=== PATIENT | female | born 1965 | race Caucasian/White ===

== ENCOUNTER 2016-07-14 12:24 | Emergency (ER) | payer BC ==
[~2016-07-14] VITALS: Ht 162.6 cm; Wt 90.7 kg
[2016-07-14 14:27] VITALS: BP 145/82
[2016-07-14] MEDS ORDERED: PRED20TA PO (14:36)
[2016-07-14] MEDS ORDERED: AMOX1TAB61 PO (14:36)
--- NOTE | 2016-07-14 14:36 | PHYS DOC ---
Past Medical History Past Medical History: Other Additional Past Medical Histor: SEASONAL ALLERGIES Past Surgical History: No Surgical History Alcohol Use: None Drug Use: None Adult General Chief Complaint Chief Complaint: FACE PROBLEM HPI HPI 51-year-old female presents with facial pain and some swelling under her right eye. She has had some pretty severe nasal congestion and feels like she has a sinus infection. She also states that she is had trouble in the past with her right tear duct not draining well. She denies any purulent drainage from the eye. She states pain over her maxillary sinus is pretty intense.] Review of Systems Review of Systems Constitutional: Denies fever or chills [] Eyes: Denies change in visual acuity, redness, or eye pain [] HENT: Per history of present illness [] Respiratory: Denies cough or shortness of breath [] Cardiovascular: No additional information not addressed in HPI [] GI: Denies abdominal pain, nausea, vomiting, bloody stools or diarrhea [] : Denies dysuria or hematuria [] Musculoskeletal: Denies back pain or joint pain [] Integument: Denies rash or skin lesions [] Neurologic: Denies headache, focal weakness or sensory changes [] Endocrine: Denies polyuria or polydipsia [] Allergies Allergies Allergies Coded Allergies Type Severity Reaction Last Updated Verified No Known Drug Allergies 07/14/16 No Physical Exam Physical Exam Constitutional: Well developed, well nourished, no acute distress, non-toxic appearance. [] HENT: Swelling under the right eye no palpable abscess nasal mucosa is swollen and congested. [] Eyes: PERRLA, EOMI, conjunctiva normal, no discharge. [] Neck: Normal range of motion, no tenderness, supple, no stridor. [] Cardiovascular:Heart rate regular rhythm, no murmur [] Lungs & Thorax: Bilateral breath sounds clear to auscultation [] Abdomen: Bowel sounds normal, soft, no tenderness, no masses, no pulsatile masses. [] Skin: Warm, dry, no erythema, no rash. [] Back: No tenderness, no CVA tenderness. [] Extremities: No tenderness, no cyanosis, no clubbing, ROM intact, no edema. [] Neurologic: Alert and oriented X 3, normal motor function, normal sensory function, no focal deficits noted. [] Psychologic: Affect normal, judgement normal, mood normal. [] Current Patient Data Vital Signs Vital Signs Date Time Temp Pulse Resp B/P Pulse Ox O2 Delivery O2 Flow Rate FiO2 07/14/16 14:27 98.4 76 18 97 Room Air 98.4 EKG EKG [] Radiology/Procedures Radiology/Procedures [] Course & Med Decision Making Course & Med Decision Making Pertinent Labs and Imaging studies reviewed. (See chart for details) [] Dragon Disclaimer Dragon Disclaimer This electronic medical record was generated, in whole or in part, using a voice recognition dictation system. Departure Departure Impression: Primary Impression: Sinusitis Disposition: HOME, SELF-CARE Condition: STABLE Referrals: PANFILO RENDON MD (PCP) Patient Instructions: Sinusitis Additional Instructions: Thank you for allowing us to participate in your care today. Followup with your primary care physician in 3 days if your symptoms do not improve. Return to the emergency department you have any new or concerning findings. This should be evaluated by the primary care physician and any necessary consulting services for continued management within a few days after discharge. Return to emergency room if you have any new or concerning symptoms including but not limited to fever, chills, nausea, vomiting, intractable pain, any new rashes, chest pain, shortness of air, uncontrolled bleeding, difficulty breathing, and/or vision loss. You may have been prescribed medication that can change in your level of thinking and ability to operate machinery. These medications include hydrocodone and Ativan. Also, Benadryl has been known to do this as well. Be sure to check with your pharmacist and ask if the medications you've prescribed can affect your level of consciousness. I recommend not operating heavy machinery or driving while on medication such as these. Scripts Prednisone 20 Mg Tablet2 Tab PO DAILY PRN sinusitis #14 TAB Prov:SAM VALLE DO 07/14/16 Amoxicillin/Potassium Clav (Augmentin 875-125 Tablet)1 Each Tablet1 Tab PO BID sinusitis #20 TAB Prov:SAM VALLE DO 07/14/16 Problem Qualifiers Primary Impression: Sinusitis Sinusitis location: maxillary Chronicity: acute Recurrence: not specified as recurrent Qualified Code: J01.00 - Acute maxillary sinusitis, unspecified SAM VALLE DO Jul 14, 2016 14:36
== END 2016-07-14 14:55 | disposition home or self-care (01) ==
LOC: ER 12:24
DX: J32.9 Chronic sinusitis, unspecified (principal)
CPT/HCPCS: 99283

== ENCOUNTER → 2016-08-13 | Outpatient (CLI) | payer BC ==
[2016-07-14 14:27] VITALS: BP 145/82
[~2016-08-13] MED LIST: AMOX1TAB61 PO; PRED20TA PO
--- NOTE | 2016-08-13 09:49 | RAD ---
DATE: 08/13/2016 EXAM: DIGITAL SCREEN BILAT W/CAD HISTORY: Screening COMPARISON: 05/18/2015 This study was interpreted with the benefit of Computerized Aided Detection (CAD). FINDINGS: The breast parenchyma shows scattered fibroglandular densities. Breast parenchyma level B. There has not been a significant change in the appearance of the breasts compared to the previous exam IMPRESSION: Benign findings BI-RADS CATEGORY: 2 BENIGN FINDING(S) RECOMMENDED FOLLOW-UP: 12M 12 MONTH FOLLOW-UP PQRS compliance statement: Patient information was entered into a reminder system with a target due date 08/13/2017 for the next mammogram. Mammography is a sensitive method for finding small breast cancers, but it does not detect them all and is not a substitute for careful clinical examination. A negative mammogram does not negate a clinically suspicious finding and should not result in delay in biopsying a clinically suspicious abnormality. "Our facility is accredited by the [employer] Mammography Program."
== END | disposition home or self-care (01) ==
LOC: MAMMO 09:13
PROVIDERS: ATTEND Family Medicine
DX: Z12.31 Encounter for screening mammogram for malignant neoplasm of breast (principal)
CPT/HCPCS: G0202; 77067

== ENCOUNTER → 2019-03-17 | Outpatient (CLI) | payer BC ==
--- NOTE | 2019-03-19 09:44 | RAD ---
DATE: 03/17/2019. EXAM: DIGITAL SCREEN BILAT W/CAD. HISTORY: Routine mammographic screening. COMPARISON: 08/13/2016. This study was interpreted with the benefit of Computerized Aided Detection (CAD). FINDINGS: Breast Density: SCATTERED The breast parenchyma shows scattered fibroglandular densities. Breast parenchyma level B.. There is a new irregular density superiorly on the left MLO view, likely corresponding with the density laterally on the CC projection. On the right, there is a new small nodule slightly laterally on the CC view. It does not a clear correlate on the MLO view but is likely slightly superior. BI-RADS CATEGORY: 0 INCOMPLETE: NEEDS ADDITIONAL IMAGING EVALUATION AND/OR PRIOR MAMMOGRAMS FOR COMPARISON.. RECOMMENDED FOLLOW-UP: ADD ADDITIONAL IMAGING. 1. Spot compression of the mid to irregular density superolaterally on the left. Sonography if necessary. 2. Spot compression of a new nodule laterally and likely superiorly on the right. Sonography if necessary. PQRS compliance statement: Patient information was entered into a reminder system with a target due date (now) for the next mammogram. Mammography is a sensitive method for finding small breast cancers, but it does not detect them all and is not a substitute for careful clinical examination. A negative mammogram does not negate a clinically suspicious finding and should not result in delay in biopsying a clinically suspicious abnormality. "Our facility is accredited by the [employer] Mammography [employer]."
== END | disposition home or self-care (01) ==
LOC: MAMMO 10:39
PROVIDERS: ATTEND Obstetrics & Gynecology
DX: Z12.31 Encounter for screening mammogram for malignant neoplasm of breast (principal); N63.10 Unspecified lump in the right breast, unspecified quadrant
CPT/HCPCS: 77067

== ENCOUNTER → 2019-03-31 | Outpatient (CLI) | payer BC ==
--- NOTE | 2019-03-31 15:20 | RAD ---
DATE: 03/31/2019. EXAM: DIGITAL DIAGNOSTIC BILATERAL, BREAST BILATERAL. HISTORY: Additional views requested for indeterminate mammographic findings. COMPARISON: 03/17/2019. This study was interpreted with the benefit of Computerized Aided Detection (CAD). FINDINGS: Breast Density: SCATTERED The breast parenchyma shows scattered fibroglandular densities. Breast parenchyma level B.. The density of concern superiorly on the left resolves to its former appearance on spot compression. The parenchymal laterally appears stable. On today's sonography, a few mildly prominent ducts are noted, but there is no suspicious sonographic finding. On the right, the nodule of concern on the CC projection is less well spleen with spot compression. There is no suspicious mammographic finding. On today's sonography, at the 9:00 position 7 7 8 cm from the nipple, small complicated cysts measure 5 x 2 mm and 4 x 2 mm, respectively. These likely correspond with prior mammographic finding. There is no suspicious sonographic finding. BI-RADS CATEGORY: 2 BENIGN FINDING(S). RECOMMENDED FOLLOW-UP: 12M 12 MONTH FOLLOW-UP. PQRS compliance statement: Patient information was entered into a reminder system with a target due date 03/17/2020 for the next mammogram. Mammography is a sensitive method for finding small breast cancers, but it does not detect them all and is not a substitute for careful clinical examination. A negative mammogram does not negate a clinically suspicious finding and should not result in delay in biopsying a clinically suspicious abnormality. "Our facility is accredited by the [employer] Mammography Program."
== END | disposition home or self-care (01) ==
LOC: MAMMO 13:50
PROVIDERS: ATTEND Obstetrics & Gynecology
DX: N60.01 Solitary cyst of right breast (principal); N63.10 Unspecified lump in the right breast, unspecified quadrant
CPT/HCPCS: 76641; 77066

== ENCOUNTER 2020-03-02 16:55 | Emergency (ER) | payer BC ==
[~2020-03-02] VITALS: Ht 160 cm; Wt 104.5 kg
--- NOTE | 2020-03-02 18:25 | PHYS DOC ---
Past Medical History Past Medical History: GERD, High Cholesterol, Hypothyroid, Other Additional Past Medical Histor: SEASONAL ALLERGIES Past Surgical History: Hysterectomy, Other Additional Past Surgical Histo: BILATERAL ROTATOR CUFF Smoking Status: Current Every Day Smoker Alcohol Use: None Drug Use: None General Adult EDM: Chief Complaint: FLANK PAIN HPI: HPI: 54-year-old female past medical history significant for hyperlipidemia, GERD, tobacco dependence and hypothyroidism, presents the ED with complaints of sudden onset right low back pain that started while patient was brushing her teeth when she started to choke. Patient describes the pain as sharp and burning in nature that radiates around to the front of her abdomen in ruq, worse with any sneezing or increased abdominal pressure. No relief with Tylenol. Patient states she had an upper and lower GI [address] Morelos. 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 Denies any fall, trauma, heavy lifting or prior back injury or disc herniation or neuropathy. Last bowel movement was yesterday was brown in color. No history of GI bleed. Denies any daily alcohol use or illicit drug use. Past surgical history of INDU-BSO (h/o uterine fibroids and endometriosis), sections and bilateral rotator cuff surgery. Reports next GI test is for the gallbladder. Review of Systems: Review of Systems: Constitutional: Denies fever or chills. [] Eyes: Denies change in visual acuity. [] HENT: Denies nasal congestion or sore throat. [] Respiratory: Denies cough or shortness of breath. [] Cardiovascular: Denies chest pressure/heaviness/tightness or edema. [] GI: Denies abdominal pain, nausea, vomiting, bloody stools or diarrhea. [] : Denies dysuria. [] Or hematuria or increased urinary frequency or suprapubic discomfort Musculoskeletal: Denies midline back pain or joint pain. [] Integument: Denies rash. [] Or swelling Neurologic: Denies headache, focal weakness or sensory changes. [] No midline neck pain no nuchal rigidity, No saddle anesthesia, no urinary or bowel retention or incontinence Endocrine: Denies polyuria or polydipsia. [] Lymphatic: Denies swollen glands. [] Psychiatric: Denies depression or anxiety. [] Heart Score: Risk Factors: Risk Factors: DM, Current or recent (<one month) smoker, HTN, HLP, family history of CAD, obesity. Risk Scores: Score 0 - 3: 2.5% MACE over next 6 weeks - Discharge Home Score 4 - 6: 20.3% MACE over next 6 weeks - Admit for Clinical Observation Score 7 - 10: 72.7% MACE over next 6 weeks - Early Invasive Strategies Allergies: Allergies: Allergies Coded Allergies Type Severity Reaction Last Updated Verified No Known Drug Allergies 07/14/16 No Physical Exam: PE: Constitutional: Well developed, well nourished, no acute distress, non-toxic appearance. [] afebrile HENT: Normocephalic, atraumatic, Eyes: EOMI, conjunctiva normal, no discharge. [] Neck: Normal range of motion, supple, no stridor. [] Cardiovascular:Heart rate regular rhythm, no murmur [] Lungs & Thorax: Bilateral breath sounds clear to auscultation [] Abdomen: obese abdomen, Bowel sounds normal, soft, no tenderness, no masses, no pulsatile masses. [] Skin: Warm, dry, no erythema, no rash. [] Back: No tenderness, no CVA tenderness. [] Extremities: No tenderness, no cyanosis, no clubbing, ROM intact, no edema. [] Equal radial pulses bilaterally Neurologic: Alert and oriented X 3, normal motor function, normal sensory function, no focal deficits noted. [] Psychologic: Affect normal, judgement normal, mood normal. [] Current Patient Data: Vital Signs: Vital Signs Date Time Temp Pulse Resp B/P (MAP) Pulse Ox O2 Delivery O2 Flow Rate FiO2 03/02/20 17:40 98.2 67 16 159/78 (105) 98.2 EKG: EKG: [] Radiology/Procedures: Radiology/Procedures: IMAGING REPORT Signed PATIENT: OLIVA OCAMPO ACCOUNT: [id number] : 1965 LOCATION: ER AGE: 54 SEX: F EXAM STATUS: REG ER ORD. PHYSICIAN: LIVAN SOLIS DO REASON: right flank pain radiates to front PROCEDURE: CT ABD PELV W/ IV CONTRST ONLY CT abdomen and pelvis with contrast; CT lumbar spine reconstruction History: Right flank pain radiating to the front Technique: After the administration of intravenous contrast, CT imaging was performed of the abdomen and pelvis. Reconstruction CT images of the lumbar spine are also submitted. No oral contrast was given. Multiplanar images are reviewed. Exposure: One or more of the following individualized dose reduction techniques were utilized for this examination: 1. Automated exposure control 2. Adjustment of the mA and/or kV according to patient size 3. Use of iterative reconstruction technique. Comparison: None Findings: There is a calcified nodule of the right lower lobe of the lung. There are a couple of small right pericardiophrenic nodes. There is no significant focal abnormality of the liver, spleen, pancreas, adrenal glands. There is likely hepatic steatosis. There are splenic granulomas. There is small accessory spleen. Both kidneys enhance without hydronephrosis. Gallbladder is present without obvious intraluminal abnormality by CT. Accurate evaluation of bowel is limited without oral contrast. There is no significant inflammatory change adjacent to the bowel. There is no evidence of bowel obstruction, free fluid, or free air. Normal caliber appendix is visualized without adjacent inflammatory-type change. There are some inguinal nodes bilaterally, borderline in size on the right about 1 cm short axis dimension. Impression: 1. There is no significant inflammatory change about the bowel, no CT evidence of acute appendicitis. 2. There is likely hepatic steatosis. 3. There is nonspecific borderline sized right inguinal node. CT lumbar spine FINDINGS: Lumbar vertebral body stature and AP alignment are maintained. There is multilevel lumbar facet degenerative change greater inferiorly of the lumbar spine. There is likely mild narrowing of the far lateral recesses bilaterally at L4-5 due to facet hypertrophic change and buckling of the ligamentum flavum, also very minimal disc osteophyte complex. Disc osteophyte complex contributes to likely [id number] narrowing of the left L5-S1 neural foramen. Facet degenerative change contributes to fairly severe narrowing of the right T8-9 neural foramen, also at least moderate narrowing on the right at T7-8 and T9-10. There is also moderate to severe narrowing of the left T7-8 and T9-T10 neural foramina. There is mild lumbar degenerative disc disease greatest at L5-S1 and L4-5. IMPRESSION: 1.Facet degenerative change contributes to multilevel inferior thoracic neural foramina compromise. 2. There is likely mild narrowing of the far lateral recesses bilaterally at L4-5. 3. There is mild degenerative disc disease greater inferiorly of the lumbar spine. Electronically signed by: Abiel Cash MD (03/02/2020 7:52 PM) [facility] DICTATED and SIGNED BY: ABIEL CASH MD DATE: 03/02/201951 Course & Med Decision Making: Course & Med Decision Making Pertinent Labs and Imaging studies reviewed. (See chart for details) Concern for right sharp and burning flank pain that radiates around to patient's right upper quadrant, onset today, suspect thoracic neuropathy. Labs unremarkable with no anemia, leukocytosis or renal failure, negative troponin and lipase. Urinalysis with no signs of infection, 0 RBC, [address] abdomen pelvis with contrast shows fatty heapatosis, no acute appendicitis or bowel inflammation. Aorta reviewed by myself on CT - normal diameter in 2 dimensions. Also shows DDD and multilevel inferior thoracic neural foramina compromise-which could explain pts' sxs. Patient has no neurologic deficits and is calm, able to tolerate pain with steady gait. Will prescribe gabapentin and felxeril (pt requests flexeril given efficacy in past). will DC home with strict ED return precautions present anesthesia, urinary bowel retention or incontinence, weakness or sensory deficits. Encouraged urgent outpatient follow-up with PMD and Ortho-may benefit from MRI if no improvement with conservative management. Life-threatening processes were considered but are low suspicion at this time, given history and physical exam. Pt was educated on all prescription medications and adverse effects. All patient's questions were answered and pt was stable at time of discharge. Life/limb-threatening differential includes but is not limited to, aortic dissection/aneurysm, cauda equina syndrome, transverse myelitis, spinal cord compression, epidural abscess or hematoma, osteomyelitis, disc herniation, surgical abdomen, stable or unstable fracture, renal colic/urosepsis, muscul oskeletal injury, traumatic injury, intraabdominal or pelvic bleeding, I spoken with the patient and her caregivers. I explained the patient's condition, diagnoses and treatment plan based on the information available to me at this time. I have answered the patient and her caregiver's questions and addressed any concerns. The patient and her caregivers have a good understandin g of patient's diagnosis, condition and treatment plan as can be expected at this point. Vital signs have been stable. Patient's condition is stable and appropriate for discharge from the emergency department. Patient will pursue further outpatient evaluation with primary care physician or other designated or consulting physician as outlined in the discharge instructions. The patient and/or caregivers are agreeable to this plan of care and follow-up instructions have been explained in detail. The patient and/or caregivers have received these instructions in written form and have expressed an understanding of the discharge instructions. The patient and/or caregivers are aware that any significant change of condition or worsening of symptoms should prompt immediate return to this or the closest emergency department or call to 1Ken Robles Disclaimer: Margaret Disclaimer: This electronic medical record was generated, in whole or in part, using a voice recognition dictation system. 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 Disposition: 01 DC HOME SELF CARE/HOMELESS Condition: STABLE Referrals: PANFILO RENDON MD (PCP) in 1- 2 weeks for re-eval Patient Instructions: Degenerative Disk Disease, Pain, Neuropathic Additional Instructions: FOLLOW UP WITH ORTHOPEDICS: Orthopaedic Sports Medicine Orthopaedic Surgery [facility] Address: [address] [place] [address] [address] [place] [address] FOLLOW UP WITH NEUROSURGERY: Neurological Surgery [place] [facility] Address: [address] [place] [address] [address] [place] [address] EMERGENCY DEPARTMENT GENERAL DISCHARGE INSTRUCTIONS Thank you for coming to [facility] Emergency Department (ED) today and trusting us with you care. We trust that you had a positive experience in our Emergency Department. If you wish to speak to the department management, you may call the Director at [phone]. YOUR FOLLOW UP INSTRUCTIONS ARE FOLLOWS: 1. Do you have a private Doctor? If you do not have a private doctor, please ask for a resource list of physicians or clinics that may be able to assist you with foll ow up care. 2. The Emergency Physicain has interpreted your x-rays. The X-Ray specialist will also review them. If there is a change in the findings, you will be notified in 48 hours when at all possible. 3. A lab test or culture has been done, your results will be reviewed and you will be notified if you need a change in treatment. ADDITIONAL INSTRUCTIONS AND INFORMATION: 1. Your care today has been supervised by a physician who is specially trained in emergency care. Many problems require more than one evaluation for a complete diagnosis and treatment. We recommend that you schedule your follow up appointment as re commended to ensure complete treatment of you illness or injury. If you are unable to obtain follow up care and continue to have a problem, or if your condition worsens, we recommend that you return to the ED. 2. We are not able to safely determine your condition over the phone nor are we able to give sound medical advice over the phone. For these safety reasons, if you call for medical advice we will ask you to come to the ED for further evaluation. 3. If you have any questions regarding these discharge instructions please call the ED at [phone]. SAFETY INFORMATION: In the interest of safety, wellness, and injury prevention; we encourage you to wear your sealbelt, if you smoke; quite smoking, and we encourage family to use a protective helmet for bicycling and other sporting events that present an increased risk for head injury. IF YOUR SYMPTOMS WORSEN OR NEW SYMPTOMS DEVELOP, OR YOU HAVE CONCERNS ABOUT YOUR CONDITION; OR IF YOUR CONDITION WORSENS WHILE YOU ARE WAITING FOR YOUR FOLLOW UP APPOINTMENT; EITHER CONTACT YOUR PRIMARY CARE DOCTOR, THE PHYSICIAN WHOSE NAME AND NUMBER YOU WERE GIVEN, OR RETURN TO THE ED IMMEDIATELY. Scripts Gabapentin (GABAPENTIN) 600 Mg Tablet 600 MG PO TID for NEUROGENIC PAIN for 7 Days, #21 TAB Prov: LIVAN SOLIS DO 03/02/20 Cyclobenzaprine Hcl (CYCLOBENZAPRINE HCL) 10 Mg Tablet 1 TAB PO TID, #21 TAB Prov: LIVAN SOLIS DO 03/02/20 LIVAN SOLIS DO Mar 02, 2020 18:25
[2020-03-02 18:26] LABS: BASO % 0 % (0-3); EOS # 0.3 x10^3/uL (0.0-0.7); EOS % 3 % (0-3); HEMATOCRIT 42.3 % (36.0-47.0); HEMOGLOBIN 14.8 g/dL (12.0-15.5); LYMPH # 3.1 x10^3/uL (1.0-4.8); LYMPH % 32 % (24-48); MEAN CORPUSCULAR HEMOGLOBIN 33 pg (25-35); MEAN CORPUSCULAR HGB CONC 35 g/dL (31-37); MEAN CORPUSCULAR VOLUME 93 fL (79-100); MONO # 0.7 x10^3/uL (0.0-1.1); MONO % 8 % (0-9); NEUT # 5.7 x10^3/uL (1.8-7.7); NEUT % 57 % (31-73); PLATELET COUNT 237 x10^3/uL (140-400); RED BLOOD COUNT 4.55 x10^6/uL (3.50-5.40); WHITE BLOOD COUNT 9.8 x10^3/uL (4.0-11.0)
[2020-03-02 18:29] LABS: BILIRUBIN,URINE NEGATIVE (NEG); CLARITY,URINE CLEAR; COLOR,URINE YELLOW; NITRITE,URINE NEGATIVE (NEG); PH,URINE 6.5 (<5.0-8.0); PROTEIN,URINE NEGATIVE (NEG-TRACE); UROBILINOGEN,URINE 0.2 mg/dL (0.2 mg/dL)
[2020-03-02 18:34] LABS: BACTERIA,URINE 0 /HPF (0-FEW); RBC,URINE 0 /HPF (0-2); WBC,URINE 0 /HPF (0-4)
[2020-03-02 18:44] LABS: CALCIUM 8.9 mg/dL (8.5-10.1); GFR 57.4; POTASSIUM 3.9 mmol/L (3.5-5.1)
[2020-03-02 18:46] LABS: MAGNESIUM 2.3 mg/dL (1.8-2.4)
[2020-03-02 18:49] LABS: ALBUMIN 3.7 g/dL (3.4-5.0); ALBUMIN/GLOBULIN RATIO 1.1 (1.0-1.7); TOTAL BILIRUBIN 0.3 mg/dL (0.2-1.0); TOTAL PROTEIN 7.2 g/dL (6.4-8.2)
[2020-03-02] MEDS ORDERED: CONTRAST GIVEN. MC PRN (19:00)
[2020-03-02] MEDS ORDERED: IOHEXOL 300 MG/ML 100ML VIAL. IV ONE (19:00)
[2020-03-02] MEDS ORDERED: MORPHINE SULFATE 4 MG/ML VIAL. IV ONE (19:45)
[2020-03-02] MEDS ORDERED: ONDANSETRON PF 4 MG/2 ML VIAL. IVP ONE (19:45)
--- NOTE | 2020-03-02 19:55 | RAD ---
CT abdomen and pelvis with contrast; CT lumbar spine reconstruction History: Right flank pain radiating to the front Technique: After the administration of intravenous contrast, CT imaging was performed of the abdomen and pelvis. Reconstruction CT images of the lumbar spine are also submitted. No oral contrast was given. Multiplanar images are reviewed. Exposure: One or more of the following individualized dose reduction techniques were utilized for this examination: 1. Automated exposure control 2. Adjustment of the mA and/or kV according to patient size 3. Use of iterative reconstruction technique. Comparison: None Findings: There is a calcified nodule of the right lower lobe of the lung. There are a couple of small right pericardiophrenic nodes. There is no significant focal abnormality of the liver, spleen, pancreas, adrenal glands. There is likely hepatic steatosis. There are splenic granulomas. There is small accessory spleen. Both kidneys enhance without hydronephrosis. Gallbladder is present without obvious intraluminal abnormality by CT. Accurate evaluation of bowel is limited without oral contrast. There is no significant inflammatory change adjacent to the bowel. There is no evidence of bowel obstruction, free fluid, or free air. Normal caliber appendix is visualized without adjacent inflammatory-type change. There are some inguinal nodes bilaterally, borderline in size on the right about 1 cm short axis dimension. Impression: 1. There is no significant inflammatory change about the bowel, no CT evidence of acute appendicitis. 2. There is likely hepatic steatosis. 3. There is nonspecific borderline sized right inguinal node. CT lumbar spine FINDINGS: Lumbar vertebral body stature and AP alignment are maintained. There is multilevel lumbar facet degenerative change greater inferiorly of the lumbar spine. There is likely mild narrowing of the far lateral recesses bilaterally at L4-5 due to facet hypertrophic change and buckling of the ligamentum flavum, also very minimal disc osteophyte complex. Disc osteophyte complex contributes to likely [id number] narrowing of the left L5-S1 neural foramen. Facet degenerative change contributes to fairly severe narrowing of the right T8-9 neural foramen, also at least moderate narrowing on the right at T7-8 and T9-10. There is also moderate to severe narrowing of the left T7-8 and T9-T10 neural foramina. There is mild lumbar degenerative disc disease greatest at L5-S1 and L4-5. IMPRESSION: 1.Facet degenerative change contributes to multilevel inferior thoracic neural foramina compromise. 2. There is likely mild narrowing of the far lateral recesses bilaterally at L4-5. 3. There is mild degenerative disc disease greater inferiorly of the lumbar spine. Electronically signed by: Rehan Hall MD (03/02/2020 7:52 PM) [facility]
[2020-03-02] MEDS ORDERED: GABA600T7 PO (20:53)
[2020-03-02] MEDS ORDERED: CYCL10TA2 PO (20:53)
[2020-03-02 21:20] VITALS: BP 164/74
== END 2020-03-02 21:28 | disposition home or self-care (01) ==
LOC: ER 16:55
DX: R10.13 Epigastric pain (principal); M51.36 Other intervertebral disc degeneration, lumbar region; M54.5 Low back pain; R20.8 Other disturbances of skin sensation; K21.9 Gastro-esophageal reflux disease without esophagitis; E78.00 Pure hypercholesterolemia, unspecified; E03.9 Hypothyroidism, unspecified; F17.200 Nicotine dependence, unspecified, uncomplicated; Z90.710 Acquired absence of both cervix and uterus; Z98.890 Other specified postprocedural states
CPT/HCPCS: 36415; 74177; 80053; 81001; 83690; 83735; 84484; 85025; 96374; 96375; 99285; J2270; J2405